=== PATIENT | female | born 1980 | race Caucasian/White ===

== ENCOUNTER → 2022-07-21 15:29 | Outpatient (BNVA) | payer OTHER, SELFPAY | PROVIDERS: Visit Provider Internal Medicine Endocrinology, Diabetes & Metabolism | DX: E83.52 Hypercalcemia (principal); E21.0 Primary hyperparathyroidism | CPT/HCPCS: 99202 ==

== ENCOUNTER 2022-11-30 13:49 | Outpatient (REF) | payer OTHER, SELFPAY ==
[2022-11-30 14:10] LABS: MANUAL DIFF FLAG NO
[2022-11-30 14:27] LABS: Basophils Percent Auto 0.3 % (0-2); Eosinophils Absolute Auto 0.4 X10*3/uL (0.0-0.4); Eosinophils Percent Auto 3.2 % (0-4); Hematocrit 44.4 % (37.0-47.0); Hemoglobin 14.7 g/dl (12.0-16.0); Imm Gran Abs Auto 0.07 X10*3/uL (0.00-0.03); Imm Gran Pct Auto 0.6 % (0.0-0.4); Lymphocytes Absolute Auto 2.5 X10*3/uL (1.2-4.9); Lymphocytes Percent Auto 20.9 % (20-40); Mean Corpuscular HGB Conc 33.1 g/dl (31.0-35.0); Mean Corpuscular Hemoglobin 29.2 pg (27.0-33.0); Mean Corpuscular Volume 88.3 fL (80.0-98.0); Monocytes Absolute Auto 0.7 X10*3/uL (0.1-1.2); Monocytes Percent Auto 5.8 % (2-11); Neutrophils Absolute Auto 8.3 x10*3/uL (2.0-8.3); Neutrophils Percent Auto 69.2 % (45-73); Platelet Count 321 X10*3/uL (160-400); Red Blood Count 5.03 X10*6/uL (4.20-5.50); Red Cell Distribution Width 12.7 % (11.0-16.0); White Blood Count 11.9 X10*3/uL (4.8-10.8)
[2022-11-30 15:32] LABS: Alanine Aminotransferase 13 U/L (0-31); Albumin Level 4.3 g/dL (3.5-5.0); Alkaline Phosphatase 124 U/L (39-117); Anion Gap 11 (12-20); Aspartate Amino Transferase 15 U/L (5-31); Blood Urea Nitrogen 13 mg/dL (9-16); Calcium 9.8 mg/dL (8.4-10.2); Carbon Dioxide 28 mmol/L (22-29); Chloride 105 mmol/L (96-108); Cholesterol 244 mg/dL; Estimated Glomerular Filt Rate > 60; Glucose Fasting 88 mg/dL (60-99); HDL Cholesterol 74 mg/dL; LDL Cholesterol Calculated 141 mg/dl; Potassium 4.9 mmol/L (3.3-5.1); Sodium 139 mmol/L (135-145); Triglycerides 146 mg/dL
[2022-11-30 16:03] LABS: Folate 7.1 ng/mL (> or = 4.0); TSH reflex Free T4 0.84 uIU/mL (0.32-4.0); Vitamin B12 217 pg/mL (200-900); Vitamin D 25-OH Total 37.8 ng/mL (>30)
[2022-11-30 17:36] LABS: Appearance Urine Clear; Color Urine Yellow; Glucose Urine UA Negative (Negative); Leukocyte Esterase Urine Negative (Negative); Nitrite Urine Negative (Negative); Urine Blood Negative (Negative); Urine Ketones Negative (Negative); Urine Protein Negative (Neg-Trace)
[2022-11-30 17:49] LABS: Creatinine Urine 190.29 mg/dL; Microalbum/Creatinine Ratio Ur 6.8 ug/mg cr
== END 2022-11-30 13:50 | disposition home or self-care (01) ==
LOC: HO.LAB 13:49
PROVIDERS: PCP Family Medicine; Visit Provider Family Medicine
DX: Z00.00 Encounter for general adult medical examination without abnormal findings (principal); E55.9 Vitamin D deficiency, unspecified; E53.8 Deficiency of other specified B group vitamins; I10 Essential (primary) hypertension
CPT/HCPCS: 36415; 80053; 80061; 81003; 82043; 82306; 82607; 82746; 84443; 85025

== ENCOUNTER 2023-01-14 12:57 | Outpatient (AMB) | payer OTHER, SELFPAY ==
[2023-01-14 13:03] VITALS: BP 124/74; PULSE 97; O2SAT 99; BMI 29.3
--- NOTE | 2023-01-14 13:03 | A.OFFPC_ITS ---
Vital Signs 01/14/23 13:03 Height 5 ft 7 in Weight 187 lb BMI 29.3 BP 124/74 Blood Pressure Location Lt brachial Pulse 97 Pulse Source Pulse Oximeter Pulse Oximetry (%) 99 Oxygen Delivery Method Room Air Intake Visit Reasons: Extended exam with f/u labs and health maint. Intake Note: Patient is here for extended exam, and follow up labs, MRI was rescheduled for tomorrow. Allergies latex Adverse Reaction (Severe, Verified 01/14/23 13:09) Rash Penicillins Adverse Reaction (Severe, Verified 01/14/23 13:09) Anaphylaxis Sulfa (Sulfonamide Antibiotics) Adverse Reaction (Severe, Verified 01/14/23 13:09) Hives Medication List - Last Reconciled 01/14/23 by Colt Neff MD albuterol sulfate 90 mcg/actuation (ProAir HFA) 1 inh inhalation Q6-8H PRN 30 days bupropion HCl 300 mg PO QAM cetirizine 10 mg PO DAILY 30 days cholecalciferol (vitamin D3) 50 mcg PO DAILY cyclobenzaprine 10 mg PO BID PRN 10 days dorzolamide 2% 1 drp ophthalmic (eye) BID hydroxyzine HCl 25 mg PO TID PRN naproxen 500 mg PO BID PRN trazodone 100 mg PO BEDTIME trazodone 50 mg PO BEDTIME zolpidem 5 mg PO BEDTIME Tobacco use date assessed: 01/14/23 Dental Screening Dental Screen Date: 01/14/23 Did you have a dental visit in the last 12 months?: Yes Did you have a dental problem in the last 6 months where you did not have access to dental care?: No Was dental information given to patient?: No HPI Extended exam with f/u labs and health maint. HPI Details 42 y/o female presents for an extended exam with f/u labs and health maintenance. Labs were drawn 11/30/22. Reviewed labs with pt. WBC elevated at 11.9. Triglycerides 146. TC 244. LDL 141. HDL 74. Viramin D good at 37.8 ng/mL. She reports allergies - she has been taking zyrtec everyday along with flonase. [facility] Surgical History (Updated 01/14/23 @ 13:12 by Tran Harris CMA) H/O parathyroidectomy History of surgery Hx of tonsillectomy Family History Father COPD (chronic obstructive pulmonary disease) CHF (congestive heart failure) Bipolar 2 disorder Brother Schizophrenia Addiction to drug Paternal Grandmother Breast cancer Alcoholism Mother Alzheimer's dementia Hyperlipidemia Arthritis Maternal Grandmother Parkinson's disease dementia Other Retinitis pigmentosa Social History (Updated 11/24/22 @ 15:38 by Seda Olmedo) Household Members: Other Household Members Other:: Crisis facility Housing: Apartment Alcohol intake: current Alcohol intake frequency: a few times a week Alcohol type: wine Patient Tobacco Use Status: Never used Tobacco e-Cigarette/Vaping Use: Never Used service: Yes Current occupational status: disabled Current occupation: Applying for disability Current occupational exposures/hazards: No Cognitive needs: No Hearing needs: No Vision needs: Yes (See's ophthalmology.) Questionnaire Thrive Questionnaire Date Thrive assessed: 11/24/22 BETTIE-7 AMB Questionnaire BETTIE-7 Date BETTIE - 7 assessed: 11/24/22 Source: Developed by Drs. Tylor Harper, Romina Souza, Len Arambula and colleagues, with an educational dinah from [employer]. Review of Systems Const Denies chills, Denies fatigue, Denies fever(s), Denies headache(s) and Denies weakness Eyes Denies change in vision ENT Denies dizziness, Denies headache(s), Denies hearing loss, Denies nasal congestion, Denies sinus pain, Denies sinus pressure and Denies sore throat Card Denies chest pain, Denies lightheadedness, Denies dyspnea and Denies other ( palpitations) Resp Denies cough, Denies dyspnea and Denies wheezing GI Denies abdominal pain, Denies melena, Denies hematochezia, Denies change in bow el habits, Denies dyspepsia and Denies nausea Denies hematuria and Denies dysuria Musc Denies abnormal gait, Denies myalgias, Denies arthralgias, Denies numbness and Denies tingling Skin/Breast Denies rash, Denies unusual bruising and Denies wounds Neuro Denies abnormal gait, Denies dizziness, Denies headache(s), Denies memory loss, Denies numbness, Denies Sensory deficit (Neuro), Denies tingling and Denies weakness Psych Denies anxiety, Denies depression and Denies memory loss Endo Denies cold intolerance, Denies fatigue, Denies heat intolerance, Denies polydipsia and Denies polyuria Bruce/Lymph Denies easy bleeding and Denies easy bruising Aller/Immun Denies wheezing Physical exam (Primary Care) Vital Signs: Last Vital Signs Pulse 97 01/14/23 13:03 BP 124/74 01/14/23 13:03 Pulse Ox 99 01/14/23 13:03 Oxygen Delivery Method Room Air 01/14/23 13:03 BMI result Body Mass Index 29.3 Tobacco/Smoking Status: Tobacco use Status Tobacco use date assessed 01/14/23 01/14/23 13:16 Patient Tobacco Use Status Never used Tobacco 01/14/23 13:08 e-Cigarette/Vaping Use Never Used 01/14/23 13:08 Thrive Assessment: Date of Thrive Assessment Date Thrive assessed 11/24/22 01/14/23 13:08 Const General: no acute distress, well developed, alert and awake Nutritional Appearance: well nourished Orientation/consciousness: patient oriented x3 HENMT Head: Yes normocephalic and Yes atraumatic Ears: hearing grossly normal bilaterally and TM's normal bilaterally General nose exam: Normal external nose present and Normal nares present Mouth: Normal oral and palatal mucosa present and moist mucous membranes Teeth and gingiva: dentition normal Throat: Yes posterior oropharynx normal Eyes General: appearance normal, both eyes and all related structures Pupils: Equal, round and reactive pupils present and Pupil accommodation reflex normal EOM: EOMs intact bilaterally Neck Neck: Yes normal visual inspection, Yes no lymphadenopathy and Yes trachea midline Thyroid: Thyroid normal Carotids: no bruits Lymphatic: no lymphadenopathy noted Chest Chest palpation & inspection: normal inspection of the chest Resp Effort & Inspection: normal respiratory effort Auscultation: clear to auscultation bilaterally Cardio Rate: regular rate Rhythm: regular rhythm Heart sounds: S1 normal heart sound present, S2 normal heart sound present, no gallops, no murmurs and no rubs Bruits: no abdominal aortic bruits and no carotid bruits GI Palpation (GI): No Abdominal aortic bruit present, Soft to palpation, nontender, No hepatosplenomegaly present and No Rebound tenderness present Auscultation: normal bowel sounds General: Yes no CVA tenderness Back/Spine/Pelvis Back: no CVA tenderness Cervical Spine: cervical ROM normal and No Cervical spine tenderness Thoracic/Lumbar Spine: thoraco-lumbar ROM normal, No pain with thoraco-lumbar ROM, No thoracic spinal tenderness and No lumbar spinal tenderness Skin Lesions: no lesions Rashes: no rashes Trauma: no lacerations or abrasions Wounds: no wounds Nails: normal Neuro General: patient oriented x3 Cranial nerves: Yes Equal, round and reactive pupils present Cognition (Neuro): normal cognition Gait exam (Neuro): Normal gait present Motor exam (neuro): 5/5 motor strength present throughout Sensory Exam: No Sensory deficit (Neuro) Deep tendon reflexes (DTR's): Right patellar reflex intensity grade: 2+ and Left patellar reflex intensity grade: 2+ Extrem General: Yes normal to inspection and No edema Psych Appearance: grossly normal Affect: normal affect Attitude: cooperative Thought process: Normal thought process present Assessment and Plan Assessment & Plan (1) Hyperlipidemia: Code(s): E78.5 - Hyperlipidemia, unspecified Plan: Elevated triglycerides but HDL ratio is good Recommended diet lower in saturated fats and cholesterol (2) Depression with anxiety: Code(s): F41.8 - Other specified anxiety disorders Plan: Currently stable Continue current medication regimen and follow-up with therapist as recommended (3) Elevated white blood cell count: Code(s): D72.829 - Elevated white blood cell count, unspecified Plan: Mild Will follow (4) Allergies: Code(s): T78.40XA - Allergy, unspecified, initial encounter Plan: Continue Zyrtec and can use nasal saline and Neti pot (5) Screening for cervical cancer: Code(s): Z12.4 - Encounter for screening for malignant neoplasm of cervix Plan: She can schedule Pap smear (6) Chronic back pain: Code(s): M54.9 - Dorsalgia, unspecified; G89.29 - Other chronic pain Plan: Chronic back pain with acute on chronic muscular pain. History of arthritis and degenerative disc disease MRI schedule for tomorrow and we can follow-up on this together by telemedicine. We can discuss next steps such as referral to Ortho or pain management. (7) Encounter for family counseling: Code(s): Z71.89 - Other specified counseling Plan: Start Micronor (8) Adult general medical exam: Code(s): Z00.00 - Encounter for general adult medical examination without abnormal findings Plan: 42-year-old female presents for extended exam Encouraged healthy diet with active lifestyle and exercise. Medications: New norethindrone (contraceptive) (Ortho Micronor) start day 1 of menstrual cycle 0.35 mg PO DAILY 84 tabs 2RF 84 days Coding Level of Care Code Est Pt Level 4 (16448) Diagnoses Hyperlipidemia E78.5 Depression with anxiety F41.8 Elevated white blood cell count D72.829 Allergies T78.40XA Screening for cervical cancer Z12.4 Chronic back pain M54.9; G89.29 Encounter for family counseling Z71.89 Adult general medical exam Z00.00
== END 2023-01-14 14:07 | disposition home or self-care (01) ==
PROVIDERS: PCP Family Medicine; Visit Provider Family Medicine
DX: E78.5 Hyperlipidemia, unspecified (principal); F41.8 Other specified anxiety disorders; D72.829 Elevated white blood cell count, unspecified; T78.40XA Allergy, unspecified, initial encounter; M54.9 Dorsalgia, unspecified; G89.29 Other chronic pain; Z71.89 Other specified counseling; Z00.00 Encounter for general adult medical examination without abnormal findings
CPT/HCPCS: 99214

== ENCOUNTER 2023-01-15 13:00 | Outpatient (REF) | payer OTHER, SELFPAY ==
--- NOTE | ~2023-01-15 | MR_ITS ---
MR CERVICAL SPINE WITHOUT CONTRAST MR THORACIC SPINE WITHOUT CONTRAST MR LUMBAR SPINE WITHOUT CONTRAST CLINICAL INFORMATION: Dorsalgia. COMPARISON: None available. TECHNIQUE: Multiplanar multisequence MR imaging of the cervical spine, thoracic, and lumbar obtained without IV contrast. FINDINGS: CERVICAL SPINE MRI: Cervical alignment is maintained. Vertebral body heights are preserved. There is moderate disc volume loss at C5-C6 and C6-C7. Craniocervical junction is unremarkable. There is no bone marrow edema. There are no acute fractures. Cervical arterial flow voids are maintained. There are no significant extra spinal soft tissue findings. Retropharyngeal course of the right cervical internal carotid artery. No cord signal changes accounting for artifact. C2-C3: Disc contour is normal. No central canal stenosis and no foraminal stenosis. C3-C4: Slight annular disc bulge. Significant left-sided facet arthropathy. No central canal stenosis and no foraminal stenosis. C4-C5: Slight annular disc bulge. Bilateral facet arthropathy. No central canal stenosis and no foraminal stenosis. C5-C6: A shallow disc osteophyte protrusion mildly narrows the central canal. Uncovertebral joint spurring and facet arthropathy result in moderate right-sided foraminal stenosis. C6-C7: Shallow left paracentral disc protrusion mildly indents the ventral thecal sac. No central canal stenosis and no foraminal stenosis. C7-T1: Disc contour is normal. No central canal stenosis and no foraminal stenosis. THORACIC SPINE MRI: There are 12 rib-bearing thoracic type vertebral bodies. Thoracic alignment is normal. Vertebral body heights are overall maintained. There is an intraosseous hemangioma within the T8 vertebral body. There is no bone marrow edema. There are no acute fractures. There are small chronic endplate Schmorl's nodes within the mid to lower thoracic spine. There are no thoracic cord signal changes. At T8-T9, a shallow left paracentral disc protrusion mildly indents the ventral thecal sac. There are no significant thoracic disc herniations. No severe central canal stenosis and no severe foraminal stenosis within the thoracic spine. LUMBAR SPINE MRI: There are 5 nonrib-bearing lumbar-type vertebral bodies. Small chronic endplate Schmorl's nodes at the L2 and L5 level. There is no bone marrow edema. There are no acute fractures. Vertebral body heights overall maintained. There is mild disc volume loss and disc desiccation at L2-L3, L4-L5, and L5-S1. Conus terminates at the L1 level. No significant extraspinal soft tissue findings. L1-L2: Disc contour is normal. There is no central canal stenosis and there is no foraminal stenosis. L2-L3: Diffuse annular disc bulge exhibiting a dorsal annular fissure. There is mild bilateral facet arthropathy. There is no central canal stenosis and there is no foraminal stenosis. L3-L4: Disc contour is normal. There is no central canal stenosis and there is no foraminal stenosis. L4-L5: Diffuse annular disc bulge and severe bilateral facet arthropathy and ligamentum flavum thickening. Findings in concert result in mild to moderate central canal stenosis and mild bilateral foraminal encroachment. L5-S1: There is a diffuse annular disc bulge and there is moderate bilateral facet arthropathy and ligamentum flavum thickening. There is no central canal stenosis and there is no foraminal stenosis. MR/MR cervical spine wo con IMPRESSION: - Multilevel cervical spondylosis, greatest at C5-C6 where multifactorial degenerative changes result in moderate right-sided foraminal stenosis. Additional mild spondylitic changes throughout the cervical spine as described. No severe central canal stenosis. Retropharyngeal course of the right cervical ICA. - Mild thoracic spondylosis. No severe central canal stenosis and no severe foraminal stenosis within the thoracic spine. - At L4-L5, multifactorial degenerative changes including advanced bilateral facet arthropathy result in mild to moderate central canal stenosis. There is moderate bilateral facet arthropathy at L5-S1. Additional mild spondylitic changes throughout the lumbar spine as described. There is no severe central canal stenosis and there is no severe foraminal stenosis within the lumbar spine.
== END 2023-01-15 13:01 | disposition home or self-care (01) ==
LOC: HO.MRI 13:00
PROVIDERS: PCP Family Medicine; Visit Provider Family Medicine
DX: M54.9 Dorsalgia, unspecified (principal); G89.29 Other chronic pain
CPT/HCPCS: 72141; 72146; 72148

== ENCOUNTER 2023-01-26 14:05 | Outpatient (AMB) | payer OTHER, SELFPAY ==
[2023-01-26 14:10] VITALS: BP 114/78; PULSE 78
--- NOTE | 2023-01-26 14:10 | A.OFFVIS_ITS ---
Intake Vital Signs 01/26/23 14:10 Height 5 ft 7 in Weight 191 lb 12.835 oz BMI 30.0 BP 114/78 Blood Pressure Location Rt brachial Position Sitting Pulse 78 Pulse Source Pulse Oximeter Intake Visit Reasons: Hyperparathyroidsm Intake Note: Patient present for Hyperparathyroidism follow up visit. Allergies latex Adverse Reaction (Severe, Verified 01/26/23 14:11) Rash Penicillins Adverse Reaction (Severe, Verified 01/26/23 14:11) Anaphylaxis Sulfa (Sulfonamide Antibiotics) Adverse Reaction (Severe, Verified 01/26/23 14:11) Hives Medication List - Last Reconciled 01/26/23 by Tylor Mendez MD albuterol sulfate 90 mcg/actuation (ProAir HFA) 1 inh inhalation Q6-8H PRN 30 days bupropion HCl 300 mg PO QAM cetirizine 10 mg PO DAILY 30 days cholecalciferol (vitamin D3) 50 mcg PO DAILY cyclobenzaprine 10 mg PO BID PRN 10 days dorzolamide 2% 1 drp ophthalmic (eye) BID hydroxyzine HCl 25 mg PO TID PRN naproxen 500 mg PO BID PRN norethindrone (contraceptive) (Ortho Micronor) 0.35 mg PO DAILY 84 days trazodone 100 mg PO BEDTIME trazodone 50 mg PO BEDTIME zolpidem 5 mg PO BEDTIME HPI HPI Comments History of Present Illness Details 42 YO F with who is seen in consultation at the request of PCP for Hypercalcemia. First noted to have high calcium Feb 20 2022. Not Currently using Calcium supplement . Not Takes IU of Vitamin D daily. Not Currently using HCTZ. Kidney stones: No Osteoporosis: No History of [place] use: No may have taken 10-15 yrs ago Biotin use: No Family history of high calcium or kidney stones: No Renal imaging: No DXA: Labs:calcium =11.1 PTH =146 , 24 urine for calcium =229 Underwent parathyroid surgery the right left parathyroid gland removed on 11/19 2022 with normalization of calcium PFSH Surgical History H/O parathyroidectomy History of surgery Hx of tonsillectomy Family History Father COPD (chronic obstructive pulmonary disease) CHF (congestive heart failure) Bipolar 2 disorder Brother Schizophrenia Addiction to drug Paternal Grandmother Breast cancer Alcoholism Mother Alzheimer's dementia Hyperlipidemia Arthritis Maternal Grandmother Parkinson's disease dementia Other Retinitis pigmentosa Social History Household Members: Other Household Members Other:: Crisis facility Housing: Apartment Alcohol intake: current Alcohol intake frequency: a few times a week Alcohol type: wine Patient Tobacco Use Status: Never used Tobacco e-Cigarette/Vaping Use: Never Used service: Yes Current occupational status: disabled Current occupation: Applying for disability Current occupational exposures/hazards: No Cognitive needs: No Hearing needs: No Vision needs: Yes (See's ophthalmology.) Assessment & Plan Assessment & Plan (1) Hypercalcemia: Code(s): E83.52 - Hypercalcemia Plan: This is a 42-year-old white female with a history of hypercalcemia due to primary hyperparathyroidism status post parathyroid surgery with normalization of calcium PTH. Plan is that the patient returned to the care of her primary care provider. She returned back to endocrinology as needed (2) Primary hyperparathyroidism: Code(s): E21.0 - Primary hyperparathyroidism Coding Level of Care Code Est Pt Level 3 (57452) Diagnoses Hypercalcemia E83.52 Primary hyperparathyroidism E21.0
== END 2023-01-26 14:21 | disposition home or self-care (01) ==
PROVIDERS: PCP Family Medicine; Visit Provider Internal Medicine Endocrinology, Diabetes & Metabolism
DX: E21.0 Primary hyperparathyroidism (principal)
CPT/HCPCS: 99213

== ENCOUNTER → 2023-01-26 14:05 | Outpatient (BNVA) | payer OTHER, SELFPAY | PROVIDERS: Visit Provider Internal Medicine Endocrinology, Diabetes & Metabolism | DX: E21.0 Primary hyperparathyroidism (principal) | CPT/HCPCS: 99212 ==

== ENCOUNTER 2023-02-18 10:00 | Outpatient (RCR) | payer OTHER, SELFPAY ==
--- NOTE | 2023-01-28 15:31 | MHC.PT.EP ---
[facility] [place] Office [place] Office [place] Office [address] Gayathri Ferrer [address] [phone] F: [phone] F: [phone] F: [phone] F: [phone] Physical Therapy Plan of Care Date of Evaluation: Date of Surgery: Diagnosis: PT eval and treat M54.0 Dorsalgia- G89.29 Other chronic pain Chronic back pain date of referral 11/25/22 Dr. 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 Neff with date of referral on 11/25/22. Pt expressing history of chronic LBP (onset ~1998) following what she describes to be injury sustained during training carrying mPort with report of newer onset of intermittent L LE radiating sx lateral posterior LE sx to the height of the knee. Pt expressing near constant sx across her lower back L>R. Pt exhibits (+) lumbar instability testing, impaired strength R hip abd/ext>L hip abd/ext, impaired conditioning and decreased tolerance for walking, standing, dynamic activity. Pt expresses she suffers from social anxiety which impacts her from leaving her home often. Pt is electing 1:1 appts due to this. Pt would benefit from attending skilled PT services at a frequency of 1-2x/week to implement low impact/core hip stabilization program. Pt expressing history of L ankle sprain injuries in the past which she has had PT for. Pt expresses she plans to use [employer] transportation services for support to and from [place] PT office with history of residence in 5th floor apartment in [place] which may impact her attendance in PT. Pt reports she has an active counselor/therapist as well as use of [facility] community health workers. Prognosis for rehab is fair>good based on findings of eval and meeting with patient. Pt requires large print for handouts (issued HEP date of eval, SKTC, pifiromis, posterior pelvic tilt). Frequency and Duration: The patient will be seen 1-2x/week Short Term Goals: 1. Initiate a HEP. 2. Improve self care/awareness of home program. 3. Strengthen R hip abd /5. 4. Complete bridge MOD I with good tolerance. 5. Strengthen activation of core during functional mobility. Assisted Goals: 1. I HEP. 2. Negative lumbar instability testing. 3. Strength core extensors 10/29. 4. Hip ext 5/5. 5. Hip abd 5/5. Treatment Plan: Modalities to reduce pain, spasms and effusion. Manual therapy to restore motion and function. Therapeutic exercise to improve strength and flexibility. Neuromuscular re-education for posture and balance. Therapeutic activities to return to functional activities of daily living. Electronically signed by: Sandy Palomino PT, DPT Please sign and return to therapist. Thank you for your referral.
== END 2023-06-14 11:03 | disposition home or self-care (01) ==
LOC: HO.PTWFD 10:00
PROVIDERS: PCP Family Medicine; Visit Provider Family Medicine
DX: M54.9 Dorsalgia, unspecified (principal); G89.29 Other chronic pain
CPT/HCPCS: 97110; 97162; 97535

== ENCOUNTER 2023-02-22 11:39 | Outpatient (AMB) | payer OTHER, SELFPAY ==
[2023-02-22 11:42] VITALS: BP 118/62; PULSE 79; O2SAT 99; BMI 29.6
--- NOTE | 2023-02-22 11:42 | MHC.PC.OV ---
Vital Signs 02/22/23 11:42 Height 5 ft 7 in Weight 189 lb BMI 29.6 BP 118/62 Blood Pressure Location Lt brachial Position Sitting Pulse 79 Pulse Source Pulse Oximeter Pulse Oximetry (%) 99 Oxygen Delivery Method Room Air Intake Visit Reasons: Pap smear and follow-up MRI Intake Note: Patient is here for a pap smear, and follow up on MRI of the lumbar spine. Patient is having question about her control. Allergies latex Adverse Reaction (Severe, Verified 02/22/23 11:49) Rash Penicillins Adverse Reaction (Severe, Verified 02/22/23 11:49) Anaphylaxis Sulfa (Sulfonamide Antibiotics) Adverse Reaction (Severe, Verified 02/22/23 11:49) Hives Tobacco use date assessed: 01/14/23 Dental Screening Dental Screen Date: 02/22/23 Did you have a dental visit in the last 12 months?: Yes Did you have a dental problem in the last 6 months where you did not have access to dental care?: No Was dental information given to patient?: Patient has dentist HPI Pap smear and follow-up MRI HPI Details 42 y/o female presents today for a pap smear/discuss MRI results. Lumbar spine MRI 01/15/23 showed multilevel cervical spondylosis, greatest at C5-C6 where multifactorial degenerative changes result in moderate right-sided foraminal stenosis. Additional mild spondylitic changes throughout the cervical spine as described. No severe central canal stenosis. Also showed mild thoracic spondylosis. No severe central canal stenosis and no severe foraminal stenosis within the thoracic spine. Pt reports last pap smear was about a year ago and was fine. Recent parathyroid surgery. Had issues with elevated calcium levels. Followed by Dr. Mendez Tolerating well and pt states he has been doing fine. [facility] Surgical History H/O parathyroidectomy History of surgery Hx of tonsillectomy Family History Father COPD (chronic obstructive pulmonary disease) CHF (congestive heart failure) Bipolar 2 disorder Brother Schizophrenia Addiction to drug Paternal Grandmother Breast cancer Alcoholism Mother Alzheimer's dementia Hyperlipidemia Arthritis Maternal Grandmother Parkinson's disease dementia Other Retinitis pigmentosa Social History Household Members: Other Household Members Other:: Crisis facility Housing: Apartment Alcohol intake: current Alcohol intake frequency: a few times a week Alcohol type: wine Patient Tobacco Use Status: Never used Tobacco e-Cigarette/Vaping Use: Never Used service: Yes Current occupational status: disabled Current occupation: Applying for disability Current occupational exposures/hazards: No Cognitive needs: No Hearing needs: No Vision needs: Yes (See's ophthalmology.) Questionnaire Thrive Questionnaire Date Thrive assessed: 11/24/22 BETTIE-7 AMB Questionnaire BETTIE-7 Date BETTIE - 7 assessed: 11/24/22 Source: Developed by Drs. Tylor Harper, Romina Souza, Len Arambula and colleagues, with an educational dinah from [employer]. Review of Systems Const Denies chills, Denies fatigue, Denies fever(s), Denies headache(s) and Denies weakness ENT Denies dizziness and Denies headache(s) Card Denies dyspnea Resp Denies cough, Denies dyspnea, Denies wheezing and Denies other (shortness of breath) Musc Denies numbness and Denies tingling Neuro Denies dizziness, Denies headache(s), Denies numbness, Denies tingling and Denies weakness Psych Denies anxiety and Denies depression Endo Denies fatigue Aller/Immun Denies wheezing Physical exam (Primary Care) Vital Signs: Last Vital Signs Pulse 79 02/22/23 11:42 BP 118/62 02/22/23 11:42 Pulse Ox 99 02/22/23 11:42 Oxygen Delivery Method Room Air 02/22/23 11:42 BMI result Body Mass Index 29.6 Tobacco/Smoking Status: Tobacco use Status Tobacco use date assessed 01/14/23 02/22/23 11:46 Patient Tobacco Use Status Never used Tobacco 02/22/23 11:46 e-Cigarette/Vaping Use Never Used 02/22/23 11:46 Thrive Assessment: Date of Thrive Assessment Date Thrive assessed 11/24/22 02/22/23 11:46 Const General: well developed; No acute distress Nutritional Appearance: well nourished Orientation/consciousness: patient oriented x3 HENMT Head: Yes normocephalic and Yes atraumatic Eyes General: appearance normal, both eyes and all related structures Pupils: Equal, round and reactive pupils present EOM: EOMs intact bilaterally Resp Effort & Inspection: normal respiratory effort Neuro General: patient oriented x3 and gait normal Cranial nerves: Yes Equal, round and reactive pupils present Psych Affect: normal affect Assessment and Plan Assessment & Plan (1) Screening for cervical cancer: Code(s): Z12.4 - Encounter for screening for malignant neoplasm of cervix Plan: Patient had a Pap smear with her prior president and chief executive officer in December 2021. This was normal. She is up-to-date. She will not need a Pap smear until December of 2024 (2) Chronic back pain: Code(s): M54.9 - Dorsalgia, unspecified; G89.29 - Other chronic pain Plan: MRI shows spondylosis and some moderate foraminal stenoses but no severe stenoses or canal stenoses. Continue physical therapy Referred to Ortho (3) S/P parathyroidectomy: Code(s): E89.2 - Postprocedural hypoparathyroidism Plan: Healing well Follow-up with endocrine as rec a Coding Level of Care Code Est Pt Level 4 (38240) Diagnoses Screening for cervical cancer Z12.4 Chronic back pain M54.9; G89.29 S/P parathyroidectomy E89.2
== END 2023-02-22 12:58 | disposition home or self-care (01) ==
PROVIDERS: PCP Family Medicine; Visit Provider Family Medicine
DX: Z12.4 Encounter for screening for malignant neoplasm of cervix (principal); M54.9 Dorsalgia, unspecified; G89.29 Other chronic pain; E89.2 Postprocedural hypoparathyroidism
CPT/HCPCS: 99214

== ENCOUNTER 2023-08-15 16:10 | Outpatient (AMB) | payer OTHER, SELFPAY ==
[2023-08-15 16:19] VITALS: BP 126/74; PULSE 108; RESP 13; TEMP 36.8; O2SAT 99; BMI 32.3
--- NOTE | 2023-08-15 16:19 | MHC.PC.OV ---
Vital Signs 08/15/23 16:19 Height 5 ft 7 in Weight 206 lb 2 oz BMI 32.3 BP 126/74 Blood Pressure Location Rt brachial Position Sitting Respiration 13 Pulse 108 H Pulse Source Pulse Oximeter Temp 98.2 F Temp Source Temporal Artery Scan Pulse Oximetry (%) 99 Oxygen Delivery Method Room Air Intake Visit Reasons: Fatigue and joint pain Data Processing Manager Required: No Accompanied by: Self / Same As Patient Allergies latex Adverse Reaction (Severe, Verified 08/15/23 16:35) Rash Penicillins Adverse Reaction (Severe, Verified 08/15/23 16:35) Anaphylaxis Sulfa (Sulfonamide Antibiotics) Adverse Reaction (Severe, Verified 08/15/23 16:35) Hives Medication List - Last Reconciled 08/15/23 by Roro Ortiz CNP albuterol sulfate 90 mcg/actuation (ProAir HFA) 1 inh inhalation Q6-8H PRN 30 days bupropion HCl 300 mg PO QAM cetirizine 10 mg PO DAILY 30 days cyclobenzaprine 10 mg PO BID PRN 10 days dorzolamide 2% 1 drp ophthalmic (eye) BID hydroxyzine HCl 25 mg PO TID PRN naproxen 500 mg PO BID PRN trazodone 100 mg PO BEDTIME trazodone 50 mg PO BEDTIME zolpidem 5 mg PO BEDTIME Tobacco use date assessed: 08/15/23 Dental Screening Dental Screen Date: 08/15/23 Did you have a dental visit in the last 12 months?: Yes Did you have a dental problem in the last 6 months where you did not have access to dental care?: No Was dental information given to patient?: Patient has dentist HPI HPI Comments History of Present Illness Details 43 y/o female presents with complaints of fatigue, generalized joint pain, irritability, dry skin. Her symptoms have been ongoing for the past 2 months. She also reports occasional headaches. She gained 15-20 lb in the past 2 months. She notes h/o allergies for which she take zyrtec daily No sick contacts She states she was evaluated an an urgent care 1-2 wks ago. She tested negative for strep, covid, and flu. [facility] Medical History (Updated 08/15/23 @ 16:59 by Roro Ortiz CNP) No pertinent past medical history Surgical History H/O parathyroidectomy Hx of tonsillectomy History of surgery Family History (Updated 08/15/23 @ 16:34 by Lucero Sauer MA) Father COPD (chronic obstructive pulmonary disease) CHF (congestive heart failure) Bipolar 2 disorder Brother Schizophrenia Addiction to drug Paternal Grandmother Breast cancer Alcoholism Mother Alzheimer's dementia Hyperlipidemia Arthritis Maternal Grandmother Parkinson's disease dementia Other Mental health disorder Retinitis pigmentosa Substance abuse Social History Household Members: Other Household Members Other:: Crisis facility Housing: Apartment Alcohol intake: current Alcohol intake frequency: a few times a week Alcohol type: wine Patient Tobacco Use Status: Never used Tobacco e-Cigarette/Vaping Use: Never Used service: Yes Current occupational status: disabled Current occupation: Applying for disability Current occupational exposures/hazards: No Cognitive needs: No Hearing needs: No Vision needs: Yes (See's ophthalmology.) Questionnaire Thrive Questionnaire Date Thrive assessed: 11/24/22 BETTIE-7 AMB Questionnaire BETTIE-7 Date BETTIE - 7 assessed: 11/24/22 Source: Developed by Drs. Tylor Harper, Romina Souza, Len Arambula and colleagues, with an educational dinah from [email or web address]. Review of Systems Const Details: Const Denies chills, Reports fatigue, Denies fever(s), Reports headache(s) and Denies weakness ENT Denies dizziness and Reports headache(s) Card Denies chest pain, Denies lightheadedness, Denies dyspnea and Denies other (Palpitations) Resp Denies cough, Denies dyspnea, Denies wheezing and Denies other ( shortness of breath) GI Denies abdominal pain, Denies melena, Denies hematochezia, Denies change in bowel habits, Denies dyspepsia and Denies nausea Denies hematuria and Denies dysuria Musc Reports as per HPI Skin/Breast Denies rash, Denies unusual bruising and Denies wounds Neuro Denies abnormal gait, Denies dizziness, Reports headache(s), Denies memory loss, Denies numbness, Denies Sensory deficit (Neuro), Denies tingling and Denies weakness Psych Denies anxiety, Denies depression, Denies memory loss Endo Denies cold intolerance, Reports fatigue, Denies heat intolerance, Denies polydipsia and Denies polyuria Aller/Immun Denies wheezing Physical exam (Primary Care) Vital Signs: Last Vital Signs Temp 98.2 F 08/15/23 16:19 Pulse 108 H 08/15/23 16:19 Resp 13 08/15/23 16:19 BP 126/74 08/15/23 16:19 Pulse Ox 99 08/15/23 16:19 Oxygen Delivery Method Room Air 08/15/23 16:19 BMI result Body Mass Index 32.3 Tobacco/Smoking Status: Tobacco use Status Tobacco use date assessed 08/15/23 08/15/23 16:34 Patient Tobacco Use Status Never used Tobacco 08/15/23 16:34 e-Cigarette/Vaping Use Never Used 08/15/23 16:34 Thrive Assessment: Date of Thrive Assessment Date Thrive assessed 11/24/22 08/15/23 16:34 Const Other: General: no acute distress and well developed Nutritional Appearance: well nourished Orientation/consciousness: patient oriented x3 HENMT Head: Yes normocephalic and Yes atraumatic Eyes General: appearance normal, both eyes and all related structures Pupils: Equal, round and reactive pupils present EOM: EOMs intact bilaterally Resp Effort & Inspection: normal respiratory effort Auscultation: clear to auscultation bilaterally Cardio Rate: regular rate Rhythm: regular rhythm Heart sounds: S1 normal heart sound present, S2 normal heart sound present, no gallops, no murmurs and no rubs GI Palpation (GI): No Abdominal aortic bruit present, Soft to palpation, nontender, No hepatosplenomegaly present and No Rebound tenderness present Auscultation: normal bowel sounds General: Yes no CVA tenderness Back/Spine/Pelvis Back: no CVA tenderness Cervical Spine: cervical ROM normal and No Cervical spine tenderness Thoracic/Lumbar Spine: thoraco-lumbar ROM normal, No pain with thoraco-lumbar ROM, No thoracic spinal tenderness and No lumbar spinal tenderness Extrem General: Yes normal to inspection, No edema and No calf tenderness Skin General: warm and dry. Normal skin color. Normal skin turgor Neuro General: patient oriented x3, gait normal and no focal neuro deficit Cranial nerves: Yes Equal, round and reactive pupils present Cognition (Neuro): normal cognition Gait exam (Neuro): Normal gait present Sensory Exam: No Sensory deficit (Neuro) Psych Appearance: grossly normal Affect: normal affect Attitude: cooperative Thought process: Normal thought process present Assessment and Plan Assessment & Plan (1) Fatigue: Code(s): R53.83 - Other fatigue Plan: Reports fatigue, generalized joint pain, irritability, dry skin, weight gain and headaches Symptoms ongoing x2 months Will order labs to check for anemia, inflammation/infection,and thyroid dysfunction Viral illness is also likely. Nasal swab collected and will be sent for COVID/flu/RSV Adequate hydration encouraged Follow-up with PCP Return sooner with worsening or new symptoms Verbalized understanding and agreed with treatment plan (2) Generalized joint pain: Code(s): M25.50 - Pain in unspecified joint Plan: As above (3) Weight gain: Code(s): R63.5 - Abnormal weight gain Plan: As above (4) Dry skin: Code(s): L85.3 - Xerosis cutis Plan: As above Orders: Orders TSH reflex Free T4 Today L85.3 - Xerosis cutis, R53.83 - Other fatigue, R63.5 - Abnormal weight gain SARS-CoV2/FLU/RSV Today M25.50 - Pain in unspecified joint, R53.83 - Other fatigue Comprehensive Met. Panel Today M25.50 - Pain in unspecified joint, R53.83 - Other fatigue Complete Blood Count Auto Diff Today M25.50 - Pain in unspecified joint, R53.83 - Other fatigue Erythrocyte Sedimentation Rate Today M25.50 - Pain in unspecified joint Coding Level of Care Code Est Pt Level 4 (88623) Diagnoses Fatigue R53.83 Generalized joint pain M25.50 Weight gain R63.5 Dry skin L85.3
== END 2023-08-15 16:54 | disposition home or self-care (01) ==
PROVIDERS: PCP Family Medicine; Visit Provider Nurse Practitioner Family
DX: R53.83 Other fatigue (principal); M25.50 Pain in unspecified joint; R63.5 Abnormal weight gain; L85.3 Xerosis cutis
CPT/HCPCS: 99214

== ENCOUNTER 2023-08-15 17:45 | Outpatient (REF) | payer OTHER, SELFPAY ==
[2023-08-16 12:40] LABS: Influenza A PCR NEGATIVE (Negative); Influenza B PCR NEGATIVE (Negative); Resp Syncy Virus RNA Qual PCR NEGATIVE (Negative); SARS COV2 PCR INHOUSE NEGATIVE (Negative)
== END 2023-08-15 17:46 | disposition home or self-care (01) ==
LOC: HO.LAB 17:45
PROVIDERS: Visit Provider Nurse Practitioner Family
DX: R53.83 Other fatigue (principal); M25.50 Pain in unspecified joint; Z11.52 Encounter for screening for COVID-19; Z20.828 Contact with and (suspected) exposure to other viral communicable diseases
CPT/HCPCS: 0241U

== ENCOUNTER 2023-08-16 11:27 | Outpatient (REF) | payer OTHER, SELFPAY ==
[2023-08-16 11:39] LABS: MANUAL DIFF FLAG NO
[2023-08-16 12:26] LABS: Basophils Percent Auto 0.4 % (0-2); Eosinophils Absolute Auto 0.4 X10*3/uL (0.0-0.4); Eosinophils Percent Auto 4.2 % (0-4); Hematocrit 43.8 % (37.0-47.0); Hemoglobin 14.9 g/dl (12.0-16.0); Imm Gran Abs Auto 0.02 X10*3/uL (0.00-0.03); Imm Gran Pct Auto 0.2 % (0.0-0.4); Lymphocytes Absolute Auto 2.1 X10*3/uL (1.2-4.9); Mean Corpuscular Hemoglobin 29.9 pg (27.0-33.0); Mean Corpuscular Volume 87.8 fL (80.0-98.0); Monocytes Absolute Auto 0.6 X10*3/uL (0.1-1.2); Monocytes Percent Auto 7.5 % (2-11); Neutrophils Absolute Auto 5.3 x10*3/uL (2.0-8.3); Neutrophils Percent Auto 62.7 % (45-73); Platelet Count 278 X10*3/uL (160-400); Red Blood Count 4.99 X10*6/uL (4.20-5.50); Red Cell Distribution Width 12.8 % (11.0-16.0); White Blood Count 8.4 X10*3/uL (4.8-10.8)
[2023-08-16 12:54] LABS: Alanine Aminotransferase 17 U/L (0-31); Albumin Level 4.4 g/dL (3.5-5.0); Alkaline Phosphatase 89 U/L (39-117); Anion Gap 11 (12-20); Aspartate Amino Transferase 19 U/L (5-31); Bilirubin Total 0.9 mg/dL (0.0-1.0); Blood Urea Nitrogen 12 mg/dL (9-16); Calcium 9.1 mg/dL (8.4-10.2); Carbon Dioxide 28 mmol/L (22-29); Chloride 104 mmol/L (96-108); Estimated Glomerular Filt Rate > 60; Glucose Random 97 mg/dL (60-115); Potassium 4.3 mmol/L (3.3-5.1); Sodium 139 mmol/L (135-145); Total Protein 7.3 g/dL (6.5-8.0)
[2023-08-16 13:08] LABS: TSH reflex Free T4 1.36 uIU/mL (0.32-4.0)
[2023-08-16 13:23] LABS: Erythrocyte Sedimentation Rate 8 MM/HR (0-20)
== END 2023-08-16 11:28 | disposition home or self-care (01) ==
LOC: HO.LAB 11:27
PROVIDERS: PCP Nurse Practitioner Family; Visit Provider Nurse Practitioner Family
DX: M25.50 Pain in unspecified joint (principal); R53.83 Other fatigue; L85.3 Xerosis cutis; R63.5 Abnormal weight gain
CPT/HCPCS: 36415; 80053; 84443; 85025; 85652

== ENCOUNTER 2023-09-26 11:21 | Outpatient (AMB) | payer OTHER, SELFPAY ==
[2023-09-26 11:29] VITALS: BP 111/78; PULSE 78; O2SAT 98; BMI 32.5
--- NOTE | 2023-09-26 11:29 | MHC.PC.OV ---
Vital Signs 09/26/23 11:29 Height 5 ft 7 in Weight 207 lb 8 oz BMI 32.5 BP 111/78 Blood Pressure Location Lt brachial Position Sitting Pulse 78 Pulse Source Pulse Oximeter Pulse Oximetry (%) 98 Oxygen Delivery Method Room Air Intake Visit Reasons: fatigue, gen aches, wt gain Intake Note: Patient is here with fatigue, general aches, and weight gain. Patientw ould also like to talk about supplements for dry eyes. Allergies latex Adverse Reaction (Severe, Verified 09/26/23 11:32) Rash Penicillins Adverse Reaction (Severe, Verified 09/26/23 11:32) Anaphylaxis Sulfa (Sulfonamide Antibiotics) Adverse Reaction (Severe, Verified 09/26/23 11:32) Hives Tobacco use date assessed: 09/26/23 Dental Screening Dental Screen Date: 09/26/23 Did you have a dental visit in the last 12 months?: Yes Did you have a dental problem in the last 6 months where you did not have access to dental care?: No Was dental information given to patient?: Patient has dentist HPI fatigue, gen aches, wt gain HPI Details 43 y/o female presents today with complaints of fatigue, gen aches and wt gain. Pt also has complaints of dry eyes. Pt reports fatigue all day long but feels worse in the morning. She does not feel rested. She denies any snoring/gasping for air. Pt reports ongoing back pain along with neck/shoulder pain. [facility] Medical History (Updated 09/26/23 @ 12:25 by Errol Garcia) Allergic reaction No pertinent past medical history Surgical History H/O parathyroidectomy Hx of tonsillectomy History of surgery Family History Father COPD (chronic obstructive pulmonary disease) CHF (congestive heart failure) Bipolar 2 disorder Brother Schizophrenia Addiction to drug Paternal Grandmother Breast cancer Alcoholism Mother Alzheimer's dementia Hyperlipidemia Arthritis Maternal Grandmother Parkinson's disease dementia Other Mental health disorder Retinitis pigmentosa Substance abuse Social History Household Members: Other Household Members Other:: Crisis facility Housing: Apartment Alcohol intake: current Alcohol intake frequency: a few times a week Alcohol type: wine Patient Tobacco Use Status: Never used Tobacco e-Cigarette/Vaping Use: Never Used service: Yes Current occupational status: disabled Current occupation: Disabled Current occupational exposures/hazards: No Cognitive needs: No Hearing needs: No Vision needs: Yes (See's ophthalmology.) Questionnaire Thrive Questionnaire Date Thrive assessed: 11/24/22 BETTIE-7 AMB Questionnaire BETTIE-7 Date BETTIE - 7 assessed: 11/24/22 Source: Developed by Drs. Tylor Harper, Romina Souza, Len Arambula and colleagues, with an educational dinah from [employer] Review of Systems Const Denies chills, Denies fatigue, Denies fever(s), Denies headache(s) and Denies weakness ENT Denies dizziness and Denies headache(s) Card Denies dyspnea Resp Denies cough, Denies dyspnea, Denies wheezing and Denies other (shortness of breath) Musc Denies numbness and Denies tingling Neuro Denies dizziness, Denies headache(s), Denies numbness, Denies tingling and Denies weakness Psych Denies anxiety and Denies depression Endo Denies fatigue Aller/Immun Denies wheezing Physical exam (Primary Care) Vital Signs: Last Vital Signs Pulse 78 09/26/23 11:29 BP 111/78 09/26/23 11:29 Pulse Ox 98 09/26/23 11:29 Oxygen Delivery Method Room Air 09/26/23 11:29 BMI result Body Mass Index 32.5 Tobacco/Smoking Status: Tobacco use Status Tobacco use date assessed 09/26/23 09/26/23 11:38 Patient Tobacco Use Status Never used Tobacco 09/26/23 11:38 e-Cigarette/Vaping Use Never Used 09/26/23 11:38 Thrive Assessment: Date of Thrive Assessment Date Thrive assessed 11/24/22 09/26/23 11:38 Const General: well developed; No acute distress Nutritional Appearance: well nourished Orientation/consciousness: patient oriented x3 HENMT Head: Yes normocephalic and Yes atraumatic Eyes General: appearance normal, both eyes and all related structures Pupils: Equal, round and reactive pupils present EOM: EOMs intact bilaterally Resp Effort & Inspection: normal respiratory effort Auscultation: clear to auscultation bilaterally Cardio Rate: regular rate Rhythm: regular rhythm Heart sounds: S1 normal heart sound present, S2 normal heart sound present, no gallops, no murmurs and no rubs Neuro General: patient oriented x3 and gait normal Cranial nerves: Yes Equal, round and reactive pupils present Psych Affect: normal affect Assessment and Plan Assessment & Plan (1) Fatigue: Code(s): R53.83 - Other fatigue Plan: Ongoing?fatigue. Recent?lab?work?is?unremarkable. Patient?wonders?if?this?may?be?related?to?a?perimenopausal?state Will?check?hormonal?levels She?also?notices?un?restful?sleep?and?hypersomnolence. Referred?to?Sleep?Medicine (2) Weight gain: Code(s): R63.5 - Abnormal weight gain Plan: Mild?increase?in?weight Encouraged?exercise (3) Generalized joint pain: Code(s): M25.50 - Pain in unspecified joint Plan: Chronic?back?pain?also?neck?and?shoulder?pain Had?referred?her?to?new?[facility]?but?she?has?not?been?called?back Will?make?new?referral (4) Dry eyes: Code(s): H04.123 - Dry eye syndrome of bilateral lacrimal glands Plan: Followed?by?ophthalmology Continue?to?follow-up?with?ophthalmology (5) Hypersomnolence: Code(s): G47.10 - Hypersomnia, unspecified Plan: As?above,?referred?to?Sleep?Medicine (6) Chronic back pain: Code(s): M54.9 - Dorsalgia, unspecified; G89.29 - Other chronic pain Plan: As?above,?referred?to?new?[facility] Orders: Orders Comprehensive [place]. Panel Fast Today Z00.00 - Encounter for general adult medical examination without abnormal findings UA and rflx microscopic Today Z00.00 - Encounter for general adult medical examination without abnormal findings Follicle Stimulating Hormone Today R53.83 - Other fatigue Lipid Panel Today Z00.00 - Encounter for general adult medical examination without abnormal findings Microalbumin, Random (w Creat) Today I10 - Essential (primary) hypertension Lutenizing Hormone Today R53.83 - Other fatigue Estrogen Today R53.83 - Other fatigue Referrals Sleep Medicine Referral G47.10 - Hypersomnia, unspecified Coding Level of Care Code Est Pt Level 4 (42839) Diagnoses Fatigue R53.83 Weight gain R63.5 Generalized joint pain M25.50 Dry eyes H04.123 Hypersomnolence G47.10 Chronic back pain M54.9; G89.29
== END 2023-09-26 12:32 | disposition home or self-care (01) ==
PROVIDERS: PCP Family Medicine; Visit Provider Family Medicine
DX: R53.83 Other fatigue (principal); R63.5 Abnormal weight gain; M25.50 Pain in unspecified joint; H04.123 Dry eye syndrome of bilateral lacrimal glands; G47.10 Hypersomnia, unspecified; M54.9 Dorsalgia, unspecified; G89.29 Other chronic pain
CPT/HCPCS: 99214

== ENCOUNTER 2023-09-26 12:34 | Outpatient (REF) | payer OTHER, SELFPAY ==
[2023-09-26 15:01] LABS: Alanine Aminotransferase 15 U/L (0-31); Albumin Level 4.3 g/dL (3.5-5.0); Alkaline Phosphatase 89 U/L (39-117); Anion Gap 11 (12-20); Aspartate Amino Transferase 16 U/L (5-31); Bilirubin Total 0.8 mg/dL (0.0-1.0); Blood Urea Nitrogen 10 mg/dL (9-16); Calcium 9.1 mg/dL (8.4-10.2); Carbon Dioxide 28 mmol/L (22-29); Chloride 105 mmol/L (96-108); Cholesterol 246 mg/dL (<200); Estimated Glomerular Filt Rate > 60; Glucose Fasting 85 mg/dL (60-99); HDL Cholesterol 68 mg/dL (>40); LDL Cholesterol Calculated 163 mg/dL (<100); Potassium 4.5 mmol/L (3.3-5.1); Sodium 139 mmol/L (135-145); Total Protein 7.5 g/dL (6.5-8.0); Triglycerides 78 mg/dL (<150)
[2023-09-26 15:54] LABS: Appearance Urine Clear; Color Urine Yellow; Glucose Urine UA Negative (Negative); Leukocyte Esterase Urine Negative (Negative); Nitrite Urine Negative (Negative); Specific Gravity - Urine <= 1.005 (1.005-1.025); Urine Blood Negative (Negative); Urine Ketones Negative (Negative); Urine Protein Negative (Neg-Trace)
[2023-09-26 16:37] LABS: Creatinine Urine 43.32 mg/dL; Microalbumin Urine < 5.0 mg/L
[2023-09-27 08:14] LABS: Follicle Stimulating Hormone 33.2 mIU/mL; Lutenizing Hormone 14.5 mIU/mL
[2023-09-30 20:24] LABS: Estrogen 184 pg/mL
== END 2023-09-26 12:35 | disposition home or self-care (01) ==
LOC: HO.WFDLDS 12:34
PROVIDERS: Visit Provider Family Medicine
DX: Z00.00 Encounter for general adult medical examination without abnormal findings (principal); I10 Essential (primary) hypertension; R53.83 Other fatigue
CPT/HCPCS: 36415; 80053; 80061; 81003; 82043; 82570; 82672; 83001; 83002